=== PATIENT | female | born 1980 | race Caucasian/White ===

== ENCOUNTER → 2023-05-16 | Outpatient (CLI) | payer OTHER, SELFPAY | END | disposition home or self-care (01) | PROVIDERS: Visit Provider Nurse Practitioner | DX: R39.15 Urgency of urination (principal); N30.90 Cystitis, unspecified without hematuria | CPT/HCPCS: 87086; 87088; 87186 ==

== ENCOUNTER → 2024-10-31 | Outpatient (CLI) | payer OTHER, SELFPAY | END | disposition home or self-care (01) | PROVIDERS: PCP Nurse Practitioner; Referring Provider Nurse Practitioner; Visit Provider Nurse Practitioner | DX: N30.90 Cystitis, unspecified without hematuria (principal); R39.15 Urgency of urination | CPT/HCPCS: 87086; 87088 ==